=== PATIENT | female | born 1965 | race African-American/Black ===

== ENCOUNTER 2021-03-06 13:18 | Emergency (ER) | payer MEDICAID | END 2021-03-06 16:36 | disposition home or self-care (01) | LOC: CSHERS 13:18 | DX: R59.0 Localized enlarged lymph nodes (principal); E03.9 Hypothyroidism, unspecified; Z21 Asymptomatic human immunodeficiency virus [HIV] infection status; Z79.899 Other long term (current) drug therapy | CPT/HCPCS: 99283 ==

== ENCOUNTER 2021-09-14 15:39 | Emergency (ER) | payer MEDICARE, OTHER ==
[2021-09-14] MEDS ORDERED: methylPREDNISolone Sod Succ/PF 125 MG/2 ML VIAL ONE (16:02)
[2021-09-14] MEDS ORDERED: diphenhydrAMINE 50 MG/ML VIAL ONE (16:03)
[2021-09-14] MEDS ORDERED: Famotidine/PF 20 mg/2ml Vial ONE (16:07)
[2021-09-14] MEDS ORDERED: EPINEPHrine 1 MG/ML AMP ONE (16:25)
== END 2021-09-14 19:30 | disposition home or self-care (01) ==
LOC: CSHERS 15:39
DX: T78.40XA Allergy, unspecified, initial encounter (principal); R07.89 Other chest pain; R07.0 Pain in throat; B20 Human immunodeficiency virus [HIV] disease; E03.9 Hypothyroidism, unspecified; Z79.890 Hormone replacement therapy
CPT/HCPCS: 96372; 96374; 96375; J0171; J1200; J2930; S0028